=== PATIENT | male | born 1965 | race Caucasian/White ===

== ENCOUNTER 2020-10-13 12:55 | Inpatient (IN) | payer MEDICAID ==
[~2020-10-13] VITALS: Ht 180.3 cm; Wt 111.5 kg
[2020-10-13] MEDS ORDERED: ONDANSETRON ODT 4 MG ONE (13:05)
--- NOTE | 2020-10-13 13:08 | NUR ---
RESPIRATORY MEDICINE PHYSICIAN: PT MEDICATED PER NURSING PROTOCOL.
[2020-10-13] MEDS ORDERED: ONDANSETRON ODT 4 MG PO ONE (13:30)
--- NOTE | 2020-10-13 14:26 | NUR ---
FIRST ENCOUNTER WITH PT, PT STATES HE HAS INDIGESTION X2 DAYS, C/O VOMITING AND DIARRHEA. PLACED VITALS MONITORS, CALL LIGHT WITHIN REACH.
[2020-10-13] MEDS ORDERED: SODIUM CHLORIDE 0.9% 1,000ML IVBOLUS ONE (15:30)
[2020-10-13] MEDS ORDERED: ONDANSETRON 2MG/ML, 2ML IVPush ONE (15:30)
[2020-10-13] MEDS ORDERED: MORPHINE SULFATE 4 MG/ML, 1ML ONE ×2 (15:31→18:58)
[2020-10-13] MEDS ORDERED: ONDANSETRON 2MG/ML, 2ML ONE (15:31)
[2020-10-13 15:44] LABS: BASOPHILS % (AUTO) 0 % (0-1); EOSINOPHILS % (AUTO) 0 % (1-7); LYMPHOCYTES % (AUTO) 3 % (22-44); MEAN CORPUSCULAR HEMOGLOBIN 31.9 pg (27.5-34.5); MEAN PLATELET VOLUME 6.9 fL (7.4-10.4); MONOCYTES % (AUTO) 4 % (2-9); NEUTROPHILS % (AUTO) 93 % (42-75); PLATELET COUNT 343 x10^3/uL (130-400); RED BLOOD COUNT 5.98 x10^6/uL (4.38-5.82); RED CELL DISTRIBUTION WIDTH 13.2 % (9.4-14.8)
[2020-10-13] MEDS: MORPHINE SULFATE 4 MG/ML, 1ML IVPush PRN ×2 (15:51→19:03)
[2020-10-13 15:55] LABS: MD NO
[2020-10-13 15:57] LABS: ALANINE AMINOTRANSFERASE 46 U/L (12-78); ANION GAP 7 mmol/L (5-15); CALCIUM 9.4 mg/dL (8.5-10.1); CHLORIDE 111 mmol/L (98-107); CREATININE 1.29 mg/dL (0.7-1.3)
[2020-10-13 15:59] LABS: ALKALINE PHOSPHATASE 89 U/L (45-117); TOTAL PROTEIN 8.2 g/dL (6.4-8.2)
--- NOTE | 2020-10-13 16:11 | NUR ---
PT TRANSPORTED TO CT.
[2020-10-13] MEDS ORDERED: OMNIPAQUE 350 MG/ML, 100ML BOTTLE ONE (16:23)
[2020-10-13] MEDS ORDERED: METOCLOPRAMIDE 5 MG/ML, 2ML IVPush ONE (17:00)
[2020-10-13] MEDS ORDERED: DIPHENHYDRAMINE 50 MG/ML, 1ML IV ONE (17:00)
[2020-10-13] MEDS ORDERED: METOCLOPRAMIDE 5 MG/ML, 2ML ONE (17:33)
[2020-10-13] MEDS ORDERED: DIPHENHYDRAMINE 50 MG/ML, 1ML ONE (17:33)
[2020-10-13 17:57] LABS: CLOSTRIDIUM DIFFICILE ANTIGEN POSITIVE; CLOSTRIDIUM DIFFICILE TOXIN NEGATIVE (Negative)
--- NOTE | 2020-10-13 18:19 | NUR ---
TASK RN: DR GALEANO AT BS. PIV ACCESS ESTABLISHED AT THIS TIME.
[2020-10-13] MEDS ORDERED: METRONIDAZOLE PMX 500MG/100ML 100 ML ONE (18:26)
[2020-10-13] MEDS ORDERED: METRONIDAZOLE PMX 500MG/100ML 100 ML IV ONE (18:30)
--- NOTE | 2020-10-13 18:32 | NUR ---
task rn: pt medicated per mar at this time
[2020-10-13] MEDS ORDERED: LABETALOL 5MG/ML, 20ML IVPush PRN (20:30)
[2020-10-13] MEDS ORDERED: LIDODERM 5% PATCH TD PRN (20:30)
[2020-10-13] MEDS ORDERED: ACETAMINOPHEN 325 MG TABLET PO PRN (20:30)
[2020-10-13] MEDS ORDERED: ONDANSETRON 2MG/ML, 2ML IVPush PRN (20:30)
[2020-10-13] MEDS ORDERED: DOCUSATE 100 MG CAPSULE PO PRN (20:30)
[2020-10-13 20:52] VITALS: BP 133/77
[2020-10-13] MEDS: LACTATED RINGERS 1,000 ML IV SCH (21:50)
[2020-10-14 01:18] VITALS: BP 154/79
[2020-10-14] MEDS: METRONIDAZOLE PMX 500MG/100ML 100 ML IV SCH ×3 (03:28→19:48)
[2020-10-14] MEDS: CALCIUM CARBONATE 500 MG TAB.CHEW PO PRN ×2 (03:28→04:40)
[2020-10-14 05:37] LABS: BASOPHILS % (AUTO) 0 % (0-1); EOSINOPHILS % (AUTO) 2 % (1-7); LYMPHOCYTES % (AUTO) 6 % (22-44); MEAN CORPUSCULAR HEMOGLOBIN 32.4 pg (27.5-34.5); MEAN CORPUSCULAR HGB CONC 34.2 g/dL (33.2-36.2); MONOCYTES % (AUTO) 9 % (2-9); NEUTROPHILS % (AUTO) 83 % (42-75); PLATELET COUNT 270 x10^3/uL (130-400); RED BLOOD COUNT 5.59 x10^6/uL (4.38-5.82); RED CELL DISTRIBUTION WIDTH 13.1 % (9.4-14.8)
[2020-10-14 05:46] LABS: ALBUMIN 3.5 g/dL (3.4-5.0); ANION GAP 9 mmol/L (5-15); CALCIUM 8.6 mg/dL (8.5-10.1); CHLORIDE 108 mmol/L (98-107)
[2020-10-14 05:50] LABS: ALANINE AMINOTRANSFERASE 36 U/L (12-78); ALKALINE PHOSPHATASE 82 U/L (45-117); BILIRUBIN,TOTAL 1.6 mg/dL (0.2-1.0); CREATININE 0.99 mg/dL (0.7-1.3); MD NO; TOTAL PROTEIN 7.2 g/dL (6.4-8.2)
[2020-10-14 07:55] VITALS: BP 148/84
[2020-10-14] MEDS: LACTATED RINGERS 1,000 ML IV SCH ×2 (08:17→16:28)
[2020-10-14] MEDS ORDERED: MAALOX/HYOSCYAMINE/LIDOCAINE 45 ML BTL PO ONE (09:00)
[2020-10-14 13:00] VITALS: BP 142/83
[2020-10-14] MEDS: OMEPRAZOLE 20 MG CAPSULE.DR PO SCH (16:28)
[2020-10-14 19:22] VITALS: BP 138/82
[2020-10-14] MEDS: MELATONIN 5 MG TABLET PO PRN (19:48)
[2020-10-15 01:40] VITALS: BP 114/65
[2020-10-15] MEDS: METRONIDAZOLE PMX 500MG/100ML 100 ML IV SCH ×3 (03:38→19:42)
[2020-10-15] MEDS: LACTATED RINGERS 1,000 ML IV SCH ×3 (03:38→23:01)
[2020-10-15] MEDS: OMEPRAZOLE 20 MG CAPSULE.DR PO SCH ×2 (05:49→16:39)
[2020-10-15 07:00] VITALS: BP 118/62
[2020-10-15 09:24] LABS: ANION GAP 7 mmol/L (5-15); CALCIUM 8.3 mg/dL (8.5-10.1); CHLORIDE 109 mmol/L (98-107); CREATININE 0.93 mg/dL (0.7-1.3)
[2020-10-15 09:44] LABS: BASOPHILS % (AUTO) 0 % (0-1); EOSINOPHILS % (AUTO) 4 % (1-7); LYMPHOCYTES % (AUTO) 12 % (22-44); MEAN CORPUSCULAR HEMOGLOBIN 32.7 pg (27.5-34.5); MEAN CORPUSCULAR HGB CONC 34.4 g/dL (33.2-36.2); MEAN PLATELET VOLUME 7.4 fL (7.4-10.4); MONOCYTES % (AUTO) 9 % (2-9); NEUTROPHILS % (AUTO) 76 % (42-75); RED BLOOD COUNT 4.92 x10^6/uL (4.38-5.82)
[2020-10-15 09:58] LABS: PLATELET COUNT 284 x10^3/uL (130-400)
[2020-10-15 09:59] LABS: MD SCAN
[2020-10-15 12:32] VITALS: BP 126/71
[2020-10-15 19:14] VITALS: BP 110/62
[2020-10-15] MEDS: MELATONIN 5 MG TABLET PO PRN (19:48)
[2020-10-16 01:32] VITALS: BP 110/67
[2020-10-16] MEDS: METRONIDAZOLE PMX 500MG/100ML 100 ML IV SCH ×2 (03:34→11:50)
[2020-10-16] MEDS: OMEPRAZOLE 20 MG CAPSULE.DR PO SCH (05:32)
[2020-10-16 07:47] LABS: BASOPHILS % (AUTO) 0 % (0-1); EOSINOPHILS % (AUTO) 3 % (1-7); LYMPHOCYTES % (AUTO) 17 % (22-44); MEAN CORPUSCULAR HEMOGLOBIN 32.4 pg (27.5-34.5); MEAN CORPUSCULAR HGB CONC 34.6 g/dL (33.2-36.2); MEAN PLATELET VOLUME 6.8 fL (7.4-10.4); MONOCYTES % (AUTO) 10 % (2-9); NEUTROPHILS % (AUTO) 70 % (42-75); PLATELET COUNT 227 x10^3/uL (130-400); RED BLOOD COUNT 4.46 x10^6/uL (4.38-5.82); RED CELL DISTRIBUTION WIDTH 12.9 % (9.4-14.8)
[2020-10-16 07:53] LABS: MD NO
[2020-10-16 07:56] VITALS: BP 111/65
[2020-10-16 07:57] LABS: ANION GAP 4 mmol/L (5-15); CALCIUM 8.4 mg/dL (8.5-10.1); CHLORIDE 108 mmol/L (98-107); CREATININE 0.89 mg/dL (0.7-1.3)
[2020-10-16] MEDS: LACTATED RINGERS 1,000 ML IV SCH ×2 (08:02→16:00)
[2020-10-16] MEDS ORDERED: VANC1VIA3 PO (11:11)
[2020-10-16] MEDS ORDERED: VANCOMYCIN 50 MG/ML ORAL SUSP PO SCH (11:30)
[2020-10-16 14:16] VITALS: BP 146/95
[2020-10-16] MEDS ORDERED: METR500T PO (16:14)
== END 2020-10-16 17:26 | disposition home or self-care (01) | DRG 372 ==
LOC: ED 18:06 → EDIP 19:35 → 3N 20:08
PROVIDERS: ADMIT Emergency Medicine; ATTEND Emergency Medicine
DX: A04.72 Enterocolitis due to Clostridium difficile, not specified as recurrent (principal); K56.609 Unspecified intestinal obstruction, unspecified as to partial versus complete obstruction; E86.0 Dehydration; F17.200 Nicotine dependence, unspecified, uncomplicated; K21.9 Gastro-esophageal reflux disease without esophagitis; R73.9 Hyperglycemia, unspecified
CPT/HCPCS: 36415; 74177; 80048; 80053; 83690; 85025; 87324; 87493; 89055; 96361; 96374; 96375; 96376; 99285; G0378; J2405; J3370; Q0162; Q9967; J1200; J2270; J2765; J7030; J7120